=== PATIENT | female | born 1960 ===

== ENCOUNTER 2021-01-18 21:58 | Emergency (ER) | payer MEDICAID ==
[2021-01-18] MEDS ORDERED: Aspirin 81 MG Tab.Chew PO ONE (22:19)
[2021-01-18] MEDS ORDERED: Nitroglycerin 0.4 MG Tab.SL SL PRN (22:19)
[2021-01-18] MEDS ORDERED: Sodium Chloride 0.9% 10 ML Syringe FLUSH PRN (22:19)
--- NOTE | 2021-01-18 22:21 | EDM.PDOC ---
ED HPI GENERAL MEDICAL PROBLEM - General Chief Complaint: Chest Pain Stated Complaint: CHEST TIGHTNESS/PAIN Time Seen by Provider: 01/18/21 22:21 Source of Information: Reports: Patient History Limitations: Reports: No Limitations - History of Present Illness INITIAL COMMENTS - FREE TEXT/NARRATIVE: patient presented to the ER with a c/o upper chest / supra sternal pain since night. no h/o CAD, but reports that over the last 2-3 days, and since her arrival to [facility], she has been moving furniture and lifting things. Neck pain has nothing to do with activities - but gets slightly worse with dep breathing. no palpitations or dizziness. pain on/off. took nothing for pain yet. h/o thyroidectomy for a cancer 0 had 3 surgical resection in the same area. no SOB or cough. only medical problem is hypothyroidism from surgical resection for which she is on thyroxine replacement therapy Onset: Sudden Duration: Day(s): (1) Location: Reports: Neck Quality: Reports: Ache Severity: Mild Improves with: Reports: None Worsens with: Reports: Breathing Context: Reports: Activity Associated Symptoms: Reports: No Other Symptoms. Denies: Chest Pain, Cough, Fever/Chills, Nausea/Vomiting, Shortness of Breath - Related Data Allergies Allergy/AdvReac Type Severity Reaction Status Date / Time Penicillins Allergy Hives Verified 01/18/21 22:58 Sulfa (Sulfonamide Allergy Hives Verified 01/18/21 22:58 Antibiotics) Home Meds: Home Meds Levothyroxine Sodium [Synthroid] 112 mg PO DAILY 01/18/21 [History] Past Medical History Endocrine/Metabolic History: Reports: Hyperthyroidism (due to surgical resection) ED ROS GENERAL - Review of Systems Review Of Systems: See Below Constitutional: Reports: No Symptoms HEENT: Reports: No Symptoms Respiratory: Reports: No Symptoms Cardiovascular: Reports: No Symptoms GI/Abdominal: Reports: No Symptoms Musculoskeletal: Reports: No Symptoms Skin: Reports: No Symptoms Neurological: Reports: No Symptoms ED EXAM, GENERAL - Physical Exam Exam: See Below Exam Limited By: No Limitations General Appearance: Alert, WD/WN, No Apparent Distress Eye Exam: Bilateral Eye: EOMI Throat/Mouth: Normal Inspection, Normal Lips, Normal Oropharynx Head: Atraumatic, Normocephalic Neck: Normal Inspection, Supple, Non-Tender, Full Range of Motion Respiratory/Chest: No Respiratory Distress, Normal Breath Sounds Cardiovascular: Regular Rate, Rhythm, No Edema GI/Abdominal: Normal Bowel Sounds, Soft, Non-Tender Extremities: Normal Inspection #1 Interpretation EKG Date: 01/18/21 Rhythm: NSR [place]: Normal P-Wave: Present QRS: Normal ST-T: Normal QT: Normal Course - Vital Signs Last Recorded V/S: Last Vital Signs Temp 36.6 C 01/18/21 23:01 Pulse 77 01/18/21 23:01 Resp 16 01/18/21 23:01 BP 141/75 H 01/18/21 23:01 Pulse Ox 96 01/18/21 23:01 - Orders/Labs/Meds Orders: Active Orders 24 hr Category Date Time Status EKG Documentation Completion [RC] ASDIRECTED Care 01/18/21 22:20 Active Nitroglycerin [Nitrostat] Med 01/18/21 22:19 Active 0.4 mg SL Q5M PRN Sodium Chloride 0.9% [Saline Flush] Med 01/18/21 22:19 Active 10 ml FLUSH ASDIRECTED PRN Saline Lock Insert [OM.PC] Routine Oth 01/18/21 22:19 Ordered Medication Orders Nitroglycerin (Nitroglycerin 0.4 Mg Tab.Sl) 0.4 mg SL Q5M PRN PRN Reason: Chest Pain Sodium Chloride (Sodium Chloride 0.9% 10 Ml Syringe) 10 ml FLUSH ASDIRECTED PRN PRN Reason: Keep Vein Open Labs: Laboratory Tests 01/18/21 01/18/21 01/18/21 Range/Units 22:19 22:19 22:19 WBC 5.0 (4.0-11.0) K/uL RBC 4.79 (3.80-5.80) M/uL Hgb 15.3 (11.5-16.5) g/dL Hct 43.7 (37.0-47.0) % MCV 91 (76-96) fL MCH 31.9 (27.0-32.0) pg MCHC 35.0 (31.0-35.0) g/dL RDW 13.1 (11.0-16.0) % Plt Count 192 (150-500) K/uL MPV 10.3 H (6.0-10.0) fL D-Dimer, Quantitative 106 (0-400) ng/mL Sodium 143 (136-145) mmol/L Potassium 3.7 (3.5-5.1) mmol/L Chloride 108 H (98-107) mmol/L Carbon Dioxide 26.5 (21.0-32.0) mmol/L Anion Gap 12.2 (5.0-15.0) mmol/L BUN 15 (8-26) mg/dL Creatinine 0.96 (0.55-1.02) mg/dL Est Cr Clr Drug Dosing 55.37 mL/min Estimated GFR (MDRD) 59 L (>60) MLS/MIN BUN/Creatinine Ratio 15.6 (6-25) Glucose 116 H (74-100) mg/dL Calcium 9.2 (8.5-10.1) mg/dL Troponin I < 0.017 (0.000-0.060) ng/mL TSH, Ultra Sensitive (0.358-3.740) uIU/mL 01/18/21 Range/Units 22:32 WBC (4.0-11.0) K/uL RBC (3.80-5.80) M/uL Hgb (11.5-16.5) g/dL Hct (37.0-47.0) % MCV (76-96) fL MCH (27.0-32.0) pg MCHC (31.0-35.0) g/dL RDW (11.0-16.0) % Plt Count (150-500) K/uL MPV (6.0-10.0) fL D-Dimer, Quantitative (0-400) ng/mL Sodium (136-145) mmol/L Potassium (3.5-5.1) mmol/L Chloride (98-107) mmol/L Carbon Dioxide (21.0-32.0) mmol/L Anion Gap (5.0-15.0) mmol/L BUN (8-26) mg/dL Creatinine (0.55-1.02) mg/dL Est Cr Clr Drug Dosing mL/min Estimated GFR (MDRD) (>60) MLS/MIN BUN/Creatinine Ratio (6-25) Glucose (74-100) mg/dL Calcium (8.5-10.1) mg/dL Troponin I (0.000-0.060) ng/mL TSH, Ultra Sensitive 0.317 L (0.358-3.740) uIU/mL Meds: Medications Generic Name Dose Route Start Last Admin Trade Name Frepat PRN Reason Stop Dose Admin Nitroglycerin 0.4 mg 01/18/21 22:19 Nitroglycerin 0.4 Mg Tab.Sl SL Q5M PRN Chest Pain Sodium Chloride 10 ml 01/18/21 22:19 Sodium Chloride 0.9% 10 Ml Syringe FLUSH ASDIRECTED PRN Keep Vein Open Discontinued Medications Generic Name Dose Route Start Last Admin Trade Name Freq PRN Reason Stop Dose Admin Aspirin 324 mg 01/18/21 22:19 01/18/21 22:43 Aspirin 81 Mg Tab.Chew PO 01/18/21 22:20 324 mg ONETIME ONE Administration Ketorolac Tromethamine 30 mg 01/18/21 22:38 01/18/21 22:41 Ketorolac 30 Mg/Ml Sdv IVPUSH 01/18/21 22:39 30 mg ONETIME ONE Administration Ketorolac Tromethamine Confirm 01/18/21 22:46 01/18/21 22:44 Ketorolac 30 Mg/Ml Sdv Administered 01/18/21 22:47 Not Given Dose 30 mg .ROUTE .STK-MED ONE - Re-Assessments/Exams Free Text/Narrative Re-Assessment/Exam: 01/18/21 22:45 was connected to a monitor - stable vitals EKG NSR no ischemic changes labs were ordered including CBC, BMP, Trop and ddimer. Also TSH. All labs WNL, trop and ddimer NWL.. TSH 317, slightly suppressed - which patient is expecting. IV Toradol was given - slightly but not total improvement in symptoms. Departure - Departure Time of Disposition: 23:12 Disposition: Home, Self-Care 01 Condition: Good Clinical Impression: Atypical chest pain, Musculoskeletal neck pain Instructions: Nonspecific Chest Pain, Adult, [id number], Chest Wall Pain, [id number] Forms: ED Department Discharge Sepsis Event Note (ED) - Focused Exam Vital Signs: Vital Signs Temp Pulse Resp BP Pulse Ox 01/18/21 23:01 36.6 C 77 16 141/75 H 96 01/18/21 22:45 85 16 148/80 H 97 01/18/21 22:25 85 18 152/70 H 97 01/18/21 22:15 86 16 157/79 H 99 06/12/21 22:05 36.6 C 86 16 157/79 H 98 - Problem List & Annotations (1) Atypical chest pain SNOMED Code(s): 860029030 Code(s): R07.89 - OTHER CHEST PAIN Status: Acute Priority: Low Current Visit: Yes (2) Musculoskeletal neck pain SNOMED Code(s): 83277454, 898572332 Code(s): M54.2 - CERVICALGIA Status: Acute Priority: Low Current Visit: Yes - Problem List Review Problem List Initiated/Reviewed/Updated: Yes - My Orders Last 24 Hours: My Active Orders 01/18/21 22:19 Nitroglycerin [Nitrostat] 0.4 mg SL Q5M PRN Sodium Chloride 0.9% [Saline Flush] 10 ml FLUSH ASDIRECTED PRN Saline Lock Insert [OM.PC] Routine 01/18/21 22:20 EKG Documentation Completion [RC] ASDIRECTED - Assessment/Plan Last 24 Hours: My Active Orders 01/18/21 22:19 Nitroglycerin [Nitrostat] 0.4 mg SL Q5M PRN Sodium Chloride 0.9% [Saline Flush] 10 ml FLUSH ASDIRECTED PRN Saline Lock Insert [OM.PC] Routine 01/18/21 22:20 EKG Documentation Completion [RC] ASDIRECTED Plan: - resume home meds before - take Tylenol/ibuprofen as needed for discomfort - follow up with your PCP next week - return to the ER if any concerns or worsening of symptoms
[2021-01-18] MEDS ORDERED: Ketorolac 30 MG/ML SDV IVPUSH ONE (22:38)
[2021-01-18] MEDS ORDERED: Ketorolac 30 MG/ML SDV ONE (22:46)
== END 2021-01-18 23:25 | disposition home or self-care (01) ==
LOC: LB.ED 21:58
DX: R07.2 Precordial pain (principal); R07.89 Other chest pain; E03.9 Hypothyroidism, unspecified; Z88.0 Allergy status to penicillin; Z88.2 Allergy status to sulfonamides; Z79.899 Other long term (current) drug therapy
CPT/HCPCS: 36415; 80048; 84443; 84484; 85027; 85379; 93005; 96374; 99285-25; A9270-GY; J1885